=== PATIENT | male | born 1980 | race Native Hawaiian/Other Pacific Islander ===

== ENCOUNTER 2018-06-24 16:30 | Emergency (ER) | payer OTHER ==
[~2018-06-24] VITALS: Ht 188 cm; Wt 79.4 kg
[2018-06-24 16:30] VITALS: TEMP 97.9
[2018-06-24 17:02] LABS: PLATELET COUNT 230 K/uL (142-355)
[2018-06-24 17:14] LABS: POTASSIUM 4.1 mmol/L (3.6-5.2)
[2018-06-24 19:10] VITALS: BP 114/80
== END 2018-06-24 19:12 ==
LOC: ED 16:34
PROVIDERS: Emergency Medicine
DX: R10.31 Right lower quadrant pain (principal)
CPT/HCPCS: 36415; 80053; 81000; 82150; 83690; 85027; 99284; Q9963